=== PATIENT | female | born 1940 | race African-American/Black ===

== ENCOUNTER 2018-04-10 15:28 | Emergency (ER) | payer MEDICARE, OTHER ==
[~2018-04-10] VITALS: Ht 165.1 cm; Wt 75.0 kg
[~2018-04-10 15:28] MED LIST: ANAS1TAB7 PO; ASPI-1159 PO; DILT180C66 PO; SEVE800T8 PO
[2018-04-10] MEDS ORDERED: ONDANSETRON HCL 4MG/2ML INJ IV STA (15:52)
[2018-04-10 16:34] LABS: HEMATOCRIT. 35.2 % (36.0-48.0); HEMOGLOBIN. 10.5 g/dL (12.0-16.0); MEAN CORPUSCULAR HEMOGLOBIN 29.8 pg (28.0-32.0); MEAN CORPUSCULAR VOLUME 99.4 fL (81.0-99.0); PLATELET 134 x1000/uL (130-400); RED BLOOD CELL COUNT 3.54 mill/uL (4.2-5.4); RED CELL DISTRIBUTION WIDTH 19.3 % (11.6-14.6)
[2018-04-10 16:44] LABS: INR 1.2; PROTHROMBIN TIME 12.1 sec (9.1-11.1)
[2018-04-10 16:45] LABS: CHLORIDE 96 mEq/L (98-107)
[2018-04-10] MEDS ORDERED: SODIUM CHLORIDE 0.9% 1,000 ML IV ONE (17:00)
[2018-04-10] MEDS ORDERED: CEFAZOLIN 1000MG PREMIX 50 ML IV ONE (18:00)
[2018-04-10] MEDS ORDERED: VANCOMYCIN 1 G PREMIX 200 ML IV SCH (18:00)
[2018-04-10 18:30] LABS: PLATELET ESTIMATE NORMAL
[2018-04-10 20:19] VITALS: BP 97/58
[2018-04-10] MEDS ORDERED: ONDANSETRON HCL 4MG/2ML INJ IV ONE (21:00)
== END 2018-04-10 21:05 | disposition short-term general hospital (02) ==
LOC: ER 15:28 → CANBEDREQ 17:33 → ER 21:05
DX: I95.9 Hypotension, unspecified (principal); I48.91 Unspecified atrial fibrillation; J44.9 Chronic obstructive pulmonary disease, unspecified; E87.8 Other disorders of electrolyte and fluid balance, not elsewhere classified; I12.0 Hypertensive chronic kidney disease with stage 5 chronic kidney disease or end stage renal disease; E11.22 Type 2 diabetes mellitus with diabetic chronic kidney disease; N18.6 End stage renal disease; Z99.2 Dependence on renal dialysis; Z86.19 Personal history of other infectious and parasitic diseases
CPT/HCPCS: 36415; 71045; 80053; 82962; 83605; 84484; 85025; 85610; 93005; 96365; 96367; 96375; 96376; 99285; J0690; J2405; J3370; J7030

== ENCOUNTER 2018-08-28 05:04 | Inpatient (IN) | payer OTHER ==
[~2018-08-28] VITALS: Ht 167.6 cm; Wt 60.3 kg
[2018-08-28] MEDS ORDERED: SODIUM CHLORIDE 0.9% 1,000 ML IV ONE (05:49)
[2018-08-28] MEDS ORDERED: ONDANSETRON HCL 4MG/2ML INJ IV STA (05:49)
[2018-08-28 06:17] LABS: CHLORIDE 104 mEq/L (98-107)
[2018-08-28 06:18] LABS: HEMOGLOBIN. 10.3 g/dL (12.0-16.0); MEAN CORPUSCULAR HEMOGLOBIN 28.6 pg (28.0-32.0); MEAN CORPUSCULAR VOLUME 91.5 fL (81.0-99.0); MEAN PLATELET VOLUME 7.7 fl (7.4-10.4); PLATELET 146 x1000/uL (130-400); RED BLOOD CELL COUNT 3.61 mill/uL (4.2-5.4); RED CELL DISTRIBUTION WIDTH 17.8 % (11.6-14.6)
[2018-08-28 06:19] LABS: INR 1.2; PROTHROMBIN TIME 12.3 sec (9.1-11.1)
[2018-08-28 06:52] LABS: PLATELET ESTIMATE NORMAL
[2018-08-28] MEDS ORDERED: DIATR MEGLU/DIATRIZOATE SOLN 30ML ONE (10:14)
[2018-08-28 18:29] VITALS: BP 102/53
[2018-08-28] MEDS ORDERED: ACETAMINOPHEN 325MG TABLET PO PRN (18:45)
[2018-08-28] MEDS ORDERED: ONDANSETRON HCL 4MG/2ML INJ IV PRN (18:45)
[2018-08-28] MEDS ORDERED: ACETAMINOPHEN 650MG/20.3ML UDC GT PRN (18:45)
[2018-08-28] MEDS ORDERED: DIPHENHYDRAMINE 50MG/ML VIAL IV PRN (18:45)
[2018-08-28] MEDS ORDERED: HYDROCODONE/ACETAMINOPHEN 10/325MG TABLET PO PRN (18:45)
[2018-08-28] MEDS ORDERED: ACETAMINOPHEN 650MG SUPP PR PRN (18:45)
[2018-08-28] MEDS ORDERED: NA PHOS,M-B/NA PHOS,DI-BA ENEMA 118ML PR PRN (18:45)
[2018-08-28] MEDS ORDERED: HYDROCODONE/ACETAMINOPHEN 5/325MG TABLET PO PRN (18:45)
[2018-08-28] MEDS ORDERED: CLONIDINE 0.1MG TABLET PO PRN (18:45)
[2018-08-28] MEDS ORDERED: MAGNESIUM/ALUMINUM HYDROXIDE/SIMETHICONE 30ML UDC PO PRN (18:45)
[2018-08-28] MEDS ORDERED: IPRATROPIUM/ALBUTEROL 0.5-3(2.5)MG/3ML NEB INH PRN (18:45)
[2018-08-28 20:00] VITALS: BP 89/38
[2018-08-28 21:54] LABS: HEMATOCRIT 28.8 % (36.0-48.0)
[2018-08-28] MEDS ORDERED: ALBUMIN HUMAN 25GM/100ML (25%) IV SCH (22:00)
[2018-08-28] MEDS: SODIUM CHLORIDE 0.9% INJ 3ML FLUSH IVF SCH (22:48)
[2018-08-29] VITALS (17 sets, daily range): BP systolic 85–102; BP diastolic 14–58
[2018-08-29] MEDS: SODIUM CHLORIDE 0.9% INJ 3ML FLUSH IVF SCH ×3 (07:38→22:47)
[2018-08-29 15:12] LABS: BASOPHILS % 0.5 % (0.0-2.0); EOSINOPHILS % 3.1 % (0.0-5.0); HEMATOCRIT. 23.1 % (36.0-48.0); HEMOGLOBIN. 7.1 g/dL (12.0-16.0); LYMPHOCYTES % 7.8 % (20.0-50.0); MEAN CORPUSCULAR HEMOGLOBIN 28.4 pg (28.0-32.0); MEAN CORPUSCULAR VOLUME 92.8 fL (81.0-99.0); MEAN PLATELET VOLUME 6.9 fl (7.4-10.4); MONOCYTES % 11.2 % (2.0-8.0); NEUTROPHILS % 77.4 % (40.0-76.0); PLATELET 148 x1000/uL (130-400); RED BLOOD CELL COUNT 2.49 mill/uL (4.2-5.4); RED CELL DISTRIBUTION WIDTH 17.8 % (11.6-14.6)
[2018-08-29 15:19] LABS: CHLORIDE 104 mEq/L (98-107)
[2018-08-29 15:26] LABS: LDL CHOLESTEROL 36 mg/dL (5-100)
[2018-08-29 15:28] LABS: HDL CHOLESTEROL 43 mg/dL (40-59); TOTAL IRON BINDING CAPACITY 135 ug/dL (250-450)
[2018-08-29] MEDS: PANTOPRAZOLE SODIUM 40 MG/VIAL IV SCH (16:17)
[2018-08-29 19:42] LABS: CHLORIDE 103 mEq/L (98-107)
[2018-08-30] VITALS (11 sets, daily range): BP systolic 85–110; BP diastolic 24–58
[2018-08-30 00:58] LABS: HEMATOCRIT 31.4 % (36.0-48.0); HEMOGLOBIN 10.3 g/dL (12.0-16.0)
[2018-08-30] MEDS: SODIUM CHLORIDE 0.9% INJ 3ML FLUSH IVF SCH ×3 (06:34→22:47)
[2018-08-30] MEDS: PANTOPRAZOLE SODIUM 40 MG/VIAL IV SCH (10:20)
[2018-08-30] MEDS ORDERED: ALBUMIN HUMAN 25GM/100ML (25%) IV NR (12:00)
[2018-08-30] MEDS: MIDODRINE HCL 2.5MG TABLET PO SCH ×3 (12:28→20:10)
[2018-08-30 13:36] LABS: CHLORIDE 107 mEq/L (98-107); HEMATOCRIT. 28.7 % (36.0-48.0); HEMOGLOBIN. 9.5 g/dL (12.0-16.0); MEAN CORPUSCULAR HEMOGLOBIN 30.1 pg (28.0-32.0); MEAN CORPUSCULAR VOLUME 91.3 fL (81.0-99.0); MEAN PLATELET VOLUME 6.9 fl (7.4-10.4); PLATELET 129 x1000/uL (130-400); RED BLOOD CELL COUNT 3.15 mill/uL (4.2-5.4); RED CELL DISTRIBUTION WIDTH 16.4 % (11.6-14.6)
[2018-08-30 14:21] LABS: PLATELET ESTIMATE SLIGHTLY DECREASED
[2018-08-31 00:31] VITALS: BP 87/48
== END 2018-08-31 00:45 | disposition short-term general hospital (02) | DRG 377 ==
LOC: ER 05:04 → 8WST 10:20 → EDBEDREQ 10:23 → ENRESERV 17:06
PROVIDERS: ADMIT Family Medicine; ATTEND Family Medicine
PROC: 30233N1 Transfusion of Nonautologous Red Blood Cells into Peripheral Vein, Percutaneous Approach (ICD-10-PCS; 2018-08-29)
PROC: 05HY33Z Insertion of Infusion Device into Upper Vein, Percutaneous Approach (ICD-10-PCS; 2018-08-29)
PROC: B54MZZA Ultrasonography of Right Upper Extremity Veins, Guidance (ICD-10-PCS; 2018-08-29)
PROC: 5A1D70Z Performance of Urinary Filtration, Intermittent, Less than 6 Hours Per Day (ICD-10-PCS; principal; 2018-08-30)
DX: K92.2 Gastrointestinal hemorrhage, unspecified (principal); N18.6 End stage renal disease; E43 Unspecified severe protein-calorie malnutrition; I13.11 Hypertensive heart and chronic kidney disease without heart failure, with stage 5 chronic kidney disease, or end stage renal disease; Z99.2 Dependence on renal dialysis; E11.22 Type 2 diabetes mellitus with diabetic chronic kidney disease; I48.91 Unspecified atrial fibrillation; K80.20 Calculus of gallbladder without cholecystitis without obstruction; M48.061 Spinal stenosis, lumbar region without neurogenic claudication; I95.9 Hypotension, unspecified; K42.9 Umbilical hernia without obstruction or gangrene; D50.0 Iron deficiency anemia secondary to blood loss (chronic); E78.5 Hyperlipidemia, unspecified; J43.9 Emphysema, unspecified; Z82.49 Family history of ischemic heart disease and other diseases of the circulatory system; Z83.3 Family history of diabetes mellitus; Z88.0 Allergy status to penicillin; Z88.8 Allergy status to other drugs, medicaments and biological substances; Z68.21 Body mass index [BMI] 21.0-21.9, adult; Z79.899 Other long term (current) drug therapy
CPT/HCPCS: 36415; 36569; 71045; 74176; 76937; 78278; 80061; 82248; 82728; 83540; 83550; 85014; 85018; 86850; 86900; 86920; 93005; 96374; 96375; 99285; A9560; C1725; C9113; J1200; J2405; J7030; J7040; P9016; P9047; Q9963